=== PATIENT | male | born 1995 | race African-American/Black ===

== ENCOUNTER → 2018-09-10 | Outpatient (CLI) | payer MEDICAID ==
[2018-09-10 18:30] LABS: CHLAM PCR NOT DETECTED (NOT DETECT); GON PCR DETECTED (NOT DETECT)
== END ==
LOC: OD 13:28
PROVIDERS: ATTEND Nurse Practitioner Acute Care
DX: R30.0 Dysuria (principal); R36.9 Urethral discharge, unspecified
CPT/HCPCS: 87086; 87491; 87591

== ENCOUNTER → 2019-08-29 | Outpatient (CLI) | payer MEDICAID ==
[2019-08-29 18:43] LABS: CHLAM PCR NOT DETECTED (NOT DETECT)
== END ==
LOC: OD 16:09
PROVIDERS: ATTEND Nurse Practitioner Acute Care
DX: R30.0 Dysuria (principal)
CPT/HCPCS: 87491; 87591